=== PATIENT | female | born 1940 | race Caucasian/White ===

== ENCOUNTER 2023-10-10 09:22 | Emergency (ER) | payer MEDICARE, SELFPAY ==
[2023-10-10 09:25] VITALS: BP 159/70
[2023-10-10 09:49] LABS: % Basophils 0.8 % (0-2); % Eosinophils 1.7 % (0-6); % Immature Granulocytes 0.3 % (0-0.5); % Lymphocytes 14.5 % (20.5-51.1); % Monocytes 9.4 % (1.7-9.3); % Neutrophils 73.3 % (42.2-75.2); Absolute Basophils 0.1 10^3/uL (0-0.2); Absolute Eosinophils 0.1 10^3/uL (0-0.7); Absolute Lymphocytes 0.9 10^3/uL (1.2-3.4); Absolute Monocytes 0.6 10^3/uL (0.1-0.6); Absolute Neutrophils 4.8 10^3/uL (1.4-6.5); Hematocrit 31.8 % (37.0-47.0); Hemoglobin 11.2 g/dL (12.0-16.0); Mean Corp Hgb Conc. 35.2 g/dL (33.0-37.0); Mean Corpuscular Hgb 35.6 pg (27.0-31.0); Mean Platelet Volume 11.6 fL (7.4-10.4); Nucleated Red Blood Cells % 0 %; Platelet Count 200 10^3/uL (130-400); Red Blood Cell Count 3.15 10^6/uL (4.20-5.40); Red Cell Dist. Width 12.5 % (11.5-14.5); White Blood Cell Count 6.5 10^3/uL (4.8-10.8)
[2023-10-10 10:01] LABS: ALT (SGPT) 21 U/L (0-35); AST (SGOT) 36 U/L (14-36); Albumin 4.2 g/dl (3.5-5.0); Alkaline Phosphatase 58 U/L (38-126); Blood Urea Nitrogen 47 mg/dl (7-17); Calcium 9.6 mg/dl (8.4-10.2); Carbon Dioxide 29 mmol/L (22-30); Chloride 105 mmol/L (98-107); Glucose 115 mg/dl (70-99); Potassium 4.5 mmol/L (3.5-5.1); Sodium 139 mmol/L (135-145); Total Bilirubin 0.8 mg/dl (0.2-1.3); Total Protein 6.9 g/dl (6.3-8.2); eGFR 49.86
[2023-10-10 10:28] LABS: Troponin I < 0.012 ng/ml
[2023-10-10 10:59] VITALS: BMI 28.0
[2023-10-10 11:03] VITALS: BP 161/71
--- NOTE | 2023-10-10 12:19 | ED.GENMED ---
History of Present Illness
<Eagle León PA-C - Last Filed: 10/10/23 14:11>
General
Chief Complaint: Blood Pressure Problem
Source: patient
Exam Limitations: none
Time Seen by Provider: 10/10/23 11:45
Travel History
Have you had any contact with someone who has COVID-19?: No
Do you have any symptoms of coronavirus? Fever > 100 degrees, chills, cough, shortness of breath, sore throat, loss of taste or smell, muscle aches, or headache?: No
History of Present Illness
History of Present Illness:
82-year-old female with history of hypertension presents complaining of generalized sensation of something not feeling right. She notes intermittent numbness to both hands and feet. She also notes her blood pressure was elevated. No headache
chest pain shortness of breath. No cough fever. No dizziness no unilateral weakness or numbness. No abdominal pain nausea vomiting. No urinary symptoms. She is on metoprolol, olmesartan, hydralazine for blood pressure. She also takes
furosemide. She denies any leg swelling or shortness of breath. No other complaints. She is accompanied by her [id number]'s friend as her family is currently out of town.
Past History
<Ealge León PA-C - Last Filed: 10/10/23 14:11>
Past History
ED Past Medical History: HTN, Other (Diverticulitis) and Other (Melanoma)
ED Past Surgical History: Cholecystectomy, Orthopedic (Right total knee replacement, L4-L5 disc fusion) and Other (Mohs surgery on chest)
Social History
Tobacco: Non-smoker
Alcohol: None
Drug: None
Phy Exam
<Eagle León PA-C - Last Filed: 10/10/23 14:11>
Physical Exam
Physical Exam:
General : WEll appearing female, NAD
HEENT: NC/AT
Heart: RRR, no murmurs
Lungs; CTA bilaterally
Neuro: No drift, finger to nose and heel to tyler intact, no slurred speech or aphasia
SKin: Warm, no rashes
MSK: no spine tenderness or deformities
ext: no cyanosis or edema
Course
<Eagle León PA-C - Last Filed: 10/10/23 14:11>
Orders/Labs/Results
Orders:
Orders
10/10/23 09:27
Electrocardiogram (*1) Urgent
Reason for Study: Chest Pain
EKG- Treatment ONCE
10/10/23 09:42
Complete Blood Count/With Diff Urgent
Comprehensive Metabolic Panel Urgent
Troponin I Urgent
10/10/23 13:12
Urinalysis Reflex To Culture Urgent
Date Specimen was Collected: 10/10/23
Time Specimen was Collected: 13:07
Urine Microscopic Reflex Cult Urgent
Abnormal Lab Results
10/10/23 10/10/23
09:42 13:12
RBC 3.15 L 10^6/uL
(4.20-5.40)
Hgb 11.2 L g/dL
(12.0-16.0)
Hct 31.8 L %
(37.0-47.0)
MCV 101.0 H fL
(81.0-99.0)
MCH 35.6 H pg
(27.0-31.0)
MPV 11.6 H fL
(7.4-10.4)
Absolute Lymphs (auto) 0.9 L 10^3/uL
(1.2-3.4)
Lymphocytes % 14.5 L %
(20.5-51.1)
Monocytes % 9.4 H %
(1.7-9.3)
BUN 47 H mg/dl
(7-17)
Creatinine 1.1 H mg/dL
(0.6-1.0)
Glucose 115 H mg/dl
(70-99)
Urine Ketones Trace A
(Negative)
Leukocyte Esterase Rfl Trace A
(Negative)
Urine Bacteria (Reflex) Few A
(Negative)
10/10/23 09:42
10/10/23 09:42
Vital Signs
Initial and Last Documented VS:
Initial Vital Signs
Temp Pulse Resp BP Pulse Ox
98.1 F 72 18 159/70 98
10/10/23 09:25 10/10/23 09:25 10/10/23 09:25 10/10/23 09:25 10/10/23 09:25
Last Documented Vital Signs
Temp Pulse Resp BP Pulse Ox
98.1 F 73 10 161/71 99
10/10/23 09:25 10/10/23 13:15 10/10/23 13:15 10/10/23 11:03 10/10/23 12:00
<Trey Olivo, DO - Last Filed: 10/10/23 13:00>
Orders/Labs/Results
Orders:
Orders
10/10/23 09:27
Electrocardiogram (*1) Urgent
Reason for Study: Chest Pain
EKG- Treatment ONCE
10/10/23 09:42
Complete Blood Count/With Diff Urgent
Comprehensive Metabolic Panel Urgent
Troponin I Urgent
10/10/23 13:12
Urinalysis Reflex To Culture Urgent
Date Specimen was Collected: 10/10/23
Time Specimen was Collected: 13:07
Urine Microscopic Reflex Cult Urgent
Abnormal Lab Results
10/10/23 10/10/23
09:42 13:12
RBC 3.15 L 10^6/uL
(4.20-5.40)
Hgb 11.2 L g/dL
(12.0-16.0)
Hct 31.8 L %
(37.0-47.0)
MCV 101.0 H fL
(81.0-99.0)
MCH 35.6 H pg
(27.0-31.0)
MPV 11.6 H fL
(7.4-10.4)
Absolute Lymphs (auto) 0.9 L 10^3/uL
(1.2-3.4)
Lymphocytes % 14.5 L %
(20.5-51.1)
Monocytes % 9.4 H %
(1.7-9.3)
BUN 47 H mg/dl
(7-17)
Creatinine 1.1 H mg/dL
(0.6-1.0)
Glucose 115 H mg/dl
(70-99)
Urine Ketones Trace A
(Negative)
Leukocyte Esterase Rfl Trace A
(Negative)
Urine Bacteria (Reflex) Few A
(Negative)
10/10/23 09:42
10/10/23 09:42
Vital Signs
Initial and Last Documented VS:
Initial Vital Signs
Temp Pulse Resp BP Pulse Ox
98.1 F 72 18 159/70 98
10/10/23 09:25 10/10/23 09:25 10/10/23 09:25 10/10/23 09:25 10/10/23 09:25
Last Documented Vital Signs
Temp Pulse Resp BP Pulse Ox
98.1 F 73 10 161/71 99
10/10/23 09:25 10/10/23 13:15 10/10/23 13:15 10/10/23 11:03 10/10/23 12:00
Hectorlt;Eagle León PA-C - Last Filed: 10/10/23 14:11>
*Critical Care Note
Total Time (30-74mins, 75-104mins- exclusive of procedures): Not Applicable
<Eagle León PA-C - Last Filed: 10/10/23 14:11>
Update Note
Update Note:
Workup here essentially within normal limits. No sign of a stroke. Discussed with emergency room attending saw the patient as well. Urinalysis ordered and is negative. Blood pressures are reasonable here. No indication to order or change blood
pressure medicine regimen
ED Attending Note
<Eagle León PA-C - Last Filed: 10/10/23 14:11>
-
Portions of this chart may have been created with voice recognition software.� Occasional wrong word or��sound alike� substitutions may have occurred due to the inherent limitations of voice recognition software.
<Trey Olivo, - Last Filed: 10/10/23 13:00>
ED Attending Note
Patient seen and examined by attending physician: Yes
ED Attending Note:
I have reviewed and agree with history and treatment plan by Jaime León. My exam
Physical Exam
General: no apparent distress, not acutely ill
Neck: supple. no meningeal signs. normal posterior pharynx
Heart: s1/s2 regular rate and rhythm, no murmur. equal radial
pulses.
HEENT: Pupils equal round reactive to light, EOMI
Lungs: no acute respiratory distress. clear bilaterally
Abdomen: normal bowel sounds. not tender. no CVAT
Neuro: alert and oriented. no focal neurological deficits cranial nerves II through XII intact
Skin: no rash
Psychiatric: well kept. interactive and cooperative
Extremities: no edema. no calf tenderness. negative homans. good distal pulses
Patient here for blood pressure elevation. No weakness. Do not suspect CVA. Will check urinalysis, if negative will discharge patient to follow-up with primary care.
Discharge Plan
Departure
Patient Disposition: Home (Routine Discharge)
Date of Disposition: 10/10/23
Time of Disposition: 14:08
Patient with high blood pressure during this ER visit?: No
Discharge Problem:
Generalized weakness
Referrals:
Andreina Mar DO [Family Provider] -
Activity Restrictions/Additional Instructions:
Please continue current medication regimen. Please follow-up with your family doctor for further evaluation
Interventions
Interventions:
*Risk Screen - Suicide Last Done: 10/10/23 10:59
*General Assessment Last Done: 10/10/23 10:59
*Neglect/Abuse Screening Last Done: 10/10/23 10:59
ED- Fall Risk Assessment Last Done: 10/10/23 10:59
*ED COVID-19 Vaccine History Last Done: 10/10/23 10:59
ED- Cardiac Assessment Last Done: 10/10/23 10:59
ED- Neurological Assessment Last Done: 10/10/23 10:59
ED- Pulmonary Assessment Last Done: 10/10/23 10:59
[2023-10-10 13:18] LABS: Urine Albumin Negative (Neg - Trace); Urine Bilirubin Negative (Negative); Urine Character Clear (Clear); Urine Color Yellow; Urine Glucose Negative (Negative); Urine Ketone Trace (Negative); Urine Leukocyte Trace (Negative); Urine Nitrite Negative (Negative); Urine Occult Blood Negative (Negative); Urine Urobilinogen Negative (Neg - 1+); Urine pH 6.5 (5.0-9.0)
[2023-10-10 13:28] LABS: Urine Hyaline Cast 0-2 /LPF (0-2); Urine Mucus Few
[2023-10-10 13:29] LABS: Urine Urothelial Cell >30 /LPF (FEW)
[2023-10-10 13:30] LABS: Urine Bacteria Few (Negative); Urine Red Blood Cell 0-2 /HPF (0-2); Urine White Cell 0-2 /HPF (0-5)
[2023-10-10 14:00] VITALS: BP 150/79
== END 2023-10-10 14:19 | disposition home or self-care (01) ==
LOC: EMR 09:22
PROVIDERS: EMERGENCY PHYSICIAN Emergency Medicine; FAMILY PHYSICIAN Family Medicine
DX: R53.1 Weakness (principal); R20.0 Anesthesia of skin; I10 Essential (primary) hypertension; K57.92 Diverticulitis of intestine, part unspecified, without perforation or abscess without bleeding; Z79.899 Other long term (current) drug therapy; Z96.651 Presence of right artificial knee joint; Z85.820 Personal history of malignant melanoma of skin; Z90.49 Acquired absence of other specified parts of digestive tract; Z98.1 Arthrodesis status; Z88.8 Allergy status to other drugs, medicaments and biological substances; Z91.041 Radiographic dye allergy status
CPT/HCPCS: 99284; 80053; 81003; 81015; 84484; 85025; 93005

== ENCOUNTER → 2023-11-11 08:05 | Outpatient (REF) | payer MEDICARE, SELFPAY | LOC: DHCBC/DCA 08:05 | PROVIDERS: ATTENDING PHYSICIAN Internal Medicine Cardiovascular Disease; FAMILY PHYSICIAN Family Medicine | DX: I10 Essential (primary) hypertension (principal); E78.5 Hyperlipidemia, unspecified; R79.89 Other specified abnormal findings of blood chemistry; R73.03 Prediabetes | CPT/HCPCS: 78452; 93017; A9500; J2785 ==

== ENCOUNTER → 2023-11-18 10:25 | Outpatient (REF) | payer MEDICARE, SELFPAY | LOC: RAD 10:25 | PROVIDERS: ATTENDING PHYSICIAN Family Medicine | DX: N28.1 Cyst of kidney, acquired (principal) | CPT/HCPCS: 76775 ==

== ENCOUNTER → 2024-03-23 10:23 | Outpatient (REF) | payer MEDICARE, SELFPAY | LOC: HWWDC 10:23 | PROVIDERS: ATTENDING PHYSICIAN Family Medicine | DX: Z12.31 Encounter for screening mammogram for malignant neoplasm of breast (principal); Z98.890 Other specified postprocedural states | CPT/HCPCS: 77063; 77067 ==

== ENCOUNTER 2025-06-24 21:45 | Observation (INO) | payer MEDICARE, SELFPAY ==
[2025-06-24] VITALS (7 sets, daily range): BP systolic 132–160; BP diastolic 56–63; BMI 21.8; BMI 21.9
[2025-06-24 16:45] LABS: Hematocrit 29.9 % (37.0-47.0); Hemoglobin 10.1 g/dL (12.0-16.0); Mean Corp Hgb Conc. 33.8 g/dL (33.0-37.0); Mean Corpuscular Volume 103.5 fL (81.0-99.0); Nucleated Red Blood Cells % 0 %; Platelet Count 244 10^3/uL (130-400); Red Cell Dist. Width 13.3 % (11.5-14.5); Urine Character Clear (Clear)
[2025-06-24 16:54] LABS: Urine Red Blood Cell 0-2 /HPF (0-2)
[2025-06-24 17:09] LABS: ALT (SGPT) 17 U/L (0-35); AST (SGOT) 28 U/L (14-36); Albumin 4.5 g/dl (3.5-5.0); Alkaline Phosphatase 61 U/L (38-126); Blood Urea Nitrogen 48 mg/dl (7-17); Calcium 9.3 mg/dl (8.4-10.2); Carbon Dioxide 27 mmol/L (22-30); Chloride 107 mmol/L (98-107); Glucose 141 mg/dl (70-99); Potassium 4.8 mmol/L (3.5-5.1); Sodium 143 mmol/L (135-145); Total Protein 7.3 g/dl (6.3-8.2); eGFR 33.94
[2025-06-24] MEDS: NSS 500 IV ×2 (18:21→21:52)
--- NOTE | 2025-06-24 18:31 | ED.GENMED ---
History of Present Illness
General
Chief Complaint: Change in Mental Status
Source: patient and family (Daughter and son-in-law at bedside)
Exam Limitations: altered mental status
Time Seen by Provider: 06/24/25 17:41
Nursing documentation reviewed up to this point in time: agreed with
History of Present Illness
History of Present Illness:
Patient is an 84-year-old female with history of hypertension who presents to the emergency department with daughter for evaluation of change in mental status. Patient's daughter states that her mom lives alone in an apartment and about 3 weeks ago
started with multiple episodes of confusion. On 1 occasion, apparently patient called her daughter stating if there were dogs and children running around her apartment. This morning, patient reportedly went down into the parking lot and was
'knocking' on another resident's truck as she thought her was trapped inside. Patient's daughter states that her 5 years ago. Apparently there has been other additional episodes of transient confusion however
she seems to revert back to her baseline in between these episodes.
Her daughter is concerned that her mom might have a UTI as she has displayed confusion in the past with such. Her mom also admits to not eating/drinking much over the past few days.
Patient has no current complaints. She denies headache, neck pain. She denies back pain. No numbness/tingling or weakness in extremities. She denies any abdominal pain or episodes of vomiting.
Patient did fall a few weeks ago however the circumstances are uncertain. She is not on any oral anticoagulation. No new medications.
Past History
Past History
ED Past Medical History: HTN, Other (Diverticulitis) and Other (Melanoma)
ED Past Surgical History: Cholecystectomy, Orthopedic (Right total knee replacement, L4-L5 disc fusion) and Other (Mohs surgery on chest)
Social History
Tobacco: Non-smoker
Alcohol: None
Drug: None
Review of Systems
Review of Systems
Allergies reviewed?: Yes
All Other Systems: ROS reviewed and negative except as documented in HPI and ROS
Phy Exam
Physical Exam
Physical Exam:
Vitals: Mildly hypertensive, otherwise vital signs stable. Afebrile
General: Patient is well appearing, no acute distress. Nontoxic appearing
Skin: Warm and dry, no rashes or lesions
Head: Normocephalic, atraumatic
Eyes: Sclera nonicteric. EOMs intact. No nystagmus.
Throat: Protecting airway
Neck: Normal ROM, no cervical spine tenderness, no meningismus
Cardiac: Regular rate and rhythm, no murmurs.
Pulm: Normal respiratory effort, no wheezes, rales, rhonchi heard on exam
.
Abdomen: No abdominal tenderness.
Extremities: Bilateral lower extremity edema, right > left. No bony tenderness of bilateral lower extremities. Distal pulses intact.
Neuro: AAOx3 on initial assessment, however appears intermittently confused. No facial droop or asymmetry. Clear speech. Moving all extremities. Strength 5/5 in bilateral upper and lower extremities.
Psychiatric: Normal affect.
Course
Orders/Labs/Results
Orders:
Orders
06/24/25 Dinner
Regular
At Your Request: Limited Participation
06/24/25 16:31
Complete Blood Count/With Diff Urgent
Comprehensive Metabolic Panel Urgent
Folate Urgent
Comment: ADD ON
Free T4 Urgent
TSH Reflex To Free T4 Urgent
Comment: ADD ON
Urinalysis Reflex To Culture Urgent
Date Specimen was Collected: 06/24/25
Time Specimen was Collected: 16:13
Urine Microscopic Reflex Cult Urgent
Vitamin B12 Urgent
Comment: ADD ON
Urine Culture Urgent
DAVID Source: U
Specimen Description:
Obtained by: Random
Date Specimen was Collected: 06/24/25
Time Specimen was Collected: 16:13
06/24/25 17:59
Electrocardiogram (*1) Urgent
Reason for Study: Fatigue / Weakness
CT Head W/o Iv Contrast Urgent
Comment:
Reason For Exam: AMS
EKG- Treatment ONCE
0.9% Sodium Chloride 500 ml [Nss] 500 ml IV BOLUS
06/24/25 18:00
US Periph Venous LOWER Ext RT Urgent
Comment:
Reason For Exam: RLE swelling
06/24/25 21:23
Add On- LAB Urgent
Tests Added?: b12 folate, tsh with free t4 reflex
Admit/Transfer Patient As Directed
Co-Sign Provider:
Level of Care: Observation services
Assign to:: Telemetry
Physician / Group: catina wood
Diagnosis: transient confusion/hallucinations/RLE cellulitis/fall
Reason for Telemetry: CVA/TIA
Date to Stop Telemetry: 06/27/25
Time to Stop Telemetry: 11:00
Reason for Hospitalization: transient confusion/hallucinations/RLE cellulitis/fall
Expected length of stay greater than two midnights?: Yes
Code Status As Directed
Resuscitation Status: Do not resuscitate
Reached after discussion with pt or family/Healthcare POA: Yes
Based on pt advanced directive or healthcare POA form: Yes
Decision communicated with: per pt with daughter amairani present at bedside
06/24/25 21:24
DNR Bracelet Application ONCE
06/24/25 21:30
PRN Pain Medication Management As Directed
May give lesser potent ordered pain med per pt: Yes
preference::
Protocol:: Medication orders for pain may be administered in a
manner that supports deferring to patient preference
when the pt is:
- Requesting an ordered lesser potent pain medication.
Least to most potent pain medications are defined
as: acetaminophen < NSAID < tramadol < opioids
(morphine, oxycodone, hydromorphone).
- Requesting a lesser dose of the same medication IF
ORDERED.
- Requesting a less intrusive route of administration
if both routes are prescribed by the provider (PO <
IV).
06/24/25 21:34
CefTRIAXone [Rocephin] 1,000 mg IV NOW STA
06/24/25 21:38
PRN Pain Medication Management As Directed
May give lesser potent ordered pain med per pt: Yes
preference::
Protocol:: Medication orders for pain may be administered in a
manner that supports deferring to patient preference
when the pt is:
- Requesting an ordered lesser potent pain medication.
Least to most potent pain medications are defined
as: acetaminophen < NSAID < tramadol < opioids
(morphine, oxycodone, hydromorphone).
- Requesting a lesser dose of the same medication IF
ORDERED.
- Requesting a less intrusive route of administration
if both routes are prescribed by the provider (PO <
IV).
06/24/25 22:00
0.9% Sodium Chloride 500 ml [Nss] 500 ml IV 50 mls/hr
06/24/25 22:29
Acetaminophen [Tylenol] 650 mg PO Q4HPRN PRN
06/24/25 22:29
Activity As Directed
Activity Level: With Assistance
Precautions As Directed
Type of Precautions: Other
Comment: fall
Vital Signs As Directed
Frequency: Per unit guidelines
Pt Eval And Treat Routine
Activity Level: With Assistance
DX Deep Vein Thrombosis Video Routine
06/25/25 06:00
MRI Brain [MR Brain Without Contrast] IN AM
Comment:
Reason For Exam: confusion
OK for patient to be off Cardiac Monitoring for MRI: Yes
Recent pill cam endoscopy?: No
Pacemaker/Defibrillator?: No
Carotid US [US Cerebrovascular] IN AM
Comment:
Reason For Exam: bilat carotid bruits
06/25/25 06:54
Cardiovascular Evaluation IN AM
Complete Blood Count/With Diff IN AM
Comprehensive Metabolic Panel IN AM
Hgba1c [Glycohemoglobin (HgbA1c)] IN AM
06/25/25 08:00
Heparin 5,000 units SC Q12
HydrALAZINE [Apresoline] 50 mg PO BID
Losartan [Cozaar] 50 mg PO DAILY
Magnesium Oxide 400 mg PO DAILY
Multivitamin [Theragran] 1 tablet PO DAILY
Pantoprazole [Protonix] 40 mg PO DAILY
06/25/25 10:00
Cyanocobalamin [Vitamin B-12] 1,000 mcg PO Q48H
06/25/25 18:00
Atorvastatin [Lipitor] 10 mg PO QPM
Calcium Carbonate [Oscal Jone 500] 500 mg PO QPM
Metoprolol Xl [Toprol Xl] 25 mg PO QPM
06/25/25 22:00
CefTRIAXone [Rocephin] 1,000 mg IV Q24H
06/26/25 06:00
Complete Blood Count/With Diff IN AM
Comprehensive Metabolic Panel IN AM
06/27/25 06:00
Complete Blood Count/With Diff IN AM
Comprehensive Metabolic Panel IN AM
06/27/25 11:00
DC Protocol for Telemetry ONCE
Abnormal Lab Results
06/24/25
16:31
RBC 2.89 L 10^6/uL
(4.20-5.40)
Hgb 10.1 L g/dL
(12.0-16.0)
Hct 29.9 L %
(37.0-47.0)
MCV 103.5 H fL
(81.0-99.0)
MCH 34.9 H pg
(27.0-31.0)
MPV 11.7 H fL
(7.4-10.4)
Absolute Monos (auto) 0.7 H 10^3/uL
(0.1-0.6)
Lymphocytes % 15.5 L %
(20.5-51.1)
Monocytes % 9.7 H %
(1.7-9.3)
BUN 48 H mg/dl
(7-17)
Creatinine 1.5 H mg/dL
(0.6-1.0)
Glucose 141 H mg/dl
(70-99)
Vitamin B12 > 1000 H pg/ml
(239-931)
Folate > 20.0 H ng/ml
(2.76-20)
TSH (Reflex) 6.38 H uIU/ml
(0.47-4.68)
Leukocyte Esterase Rfl 1+ A
(Negative)
Urine Bacteria (Reflex) Many A
(Negative)
Urine Albumin (Reflex) 2+ A
(Neg - Trace)
06/24/25 16:31
06/24/25 16:31
Vital Signs
Initial and Last Documented VS:
Initial Vital Signs
Temp Pulse Resp BP Pulse Ox
98.8 F 72 16 155/57 98
06/24/25 16:07 06/24/25 16:07 06/24/25 16:07 06/24/25 16:07 06/24/25 16:07
Last Documented Vital Signs
Temp Pulse Resp BP Pulse Ox
98.6 F 78 14 104/40 97
06/25/25 11:38 06/25/25 11:38 06/25/25 11:38 06/25/25 11:38 06/25/25 11:38
MDM/Problems Addressed
Differential Diagnosis Includes:
Not limited to: Acute dehydration, UTI, intracranial mass, intracranial hemorrhage, TIA, etc.
MDM/Problems Addressed:
84-year-old female with intermittent change in mental status over the past three weeks. She has suffered a recent fall however circumstances unclear. No infectious symptoms. Vitals stable. On initial evaluation patient appears well and in no
distress. She is alert & oriented without any focal neurologic deficits. Strength equal. Cardio/pulmonary assessment unremarkable. Abdomen benign.
Basic labs were sent prior to my evaluation significant for mild KATIE likely secondary to poor PO intake. Urine with a few bacteria, however no convincing evidence of UTI.
Differential includes infectious process, dehydration, central process including TIA/CVA, versus new onset dementia.
Will give IV fluids, obtain CT scan head, and ultrasound of right lower extremity.
Update: CT head without acute findings. Ultrasound evidence of DVT.
On reevaluation, patient was not aware that she was in the hospital. She otherwise remains neurologically intact without any focal deficits.
Given acute changes in mental status will admit patient for further evaluation/management. She likely will need MRI. Will hold antibiotics without convincing evidence of infection. Patient accepted to hospitalist service in stable condition for
further care.
Chronic conditions affecting care:
Hypertension
Acute Exacerbation and/or Progression of Chronic Illness:
Acutely hypertensive
*Radiology
Radiology exam reviewed: radiology read reviewed
*Pulse Oximetry
SaO2: 99
Oxygen Mode of Delivery: Room air
Patient hypoxic: no
*EKG
Interpreted by ED Provider?: Yes
EKG Intrepretation Date: 06/24/25
Interpretation: abnormal
Comparison EKG: no changes
Heart Rate: 76
Rate: normal
Rhythm: sinus
[place]: normal axis
Interval: normal QT interval
QRS Pattern: normal QRS
Ischemia: no ischemia
*Assistant Manager Bilingual Interpretation
Rate: normal
Interpretation: normal
Heart Rate: 76
Rhythm: sinus
*Critical Care Note
Total Time (30-74mins, 75-104mins- exclusive of procedures): Not Applicable
Patient Management
Discussion with other providers: Hospitalist
ED Attending Note
-
Portions of this chart may have been created with voice recognition software.� Occasional wrong word or��sound alike� substitutions may have occurred due to the inherent limitations of voice recognition software.
Discharge Plan
Departure
Patient Disposition: Admit
Date of Disposition: 06/24/25
Time of Disposition: 20:36
Presentation/result/management discussed w/ accepting MD/DO: Hospitalist
Discharge Problem:
Altered mental status, Renal insufficiency
Interventions
Interventions:
*Risk Screen - Suicide Last Done: 06/24/25 22:42
*General Assessment Last Done: 06/24/25 18:05
*Neglect/Abuse Screening Last Done: 06/24/25 18:06
*ED- Fall Risk Assessment Last Done: 06/24/25 22:04
*ED COVID-19 Vaccine History Last Done: 06/24/25 18:03
*ED Influenza Vaccine History Last Done: 06/24/25 18:03
*Nursing Disposition Last Done: 06/24/25 22:25
ED- Pulmonary Assessment Last Done: 06/24/25 19:53
ED-Psychological Assessment Last Done: 06/24/25 18:10
ED- Neurological Assessment Last Done: 06/24/25 19:53
ED- Cardiac Assessment Last Done: 06/24/25 22:00
Discharge Date and Time
Discharge Date/Time: 06/24/25 22:25
--- NOTE | 2025-06-24 19:33 | EDRN ---
Pt says she is here because she fell and to make sure her head is ok 'that I'm normal.' Daughter adds pt fell at least 1 week ago. Pt hurt her R leg in the fall. Pt unsure why she fell, thinks it might have been a slippery mat on the floor. No
loc. Pt uses rollator and walker. Pt lives in an apt by herself. Pt denies pain at this time. Pt says she gets confused at times. 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 Pt called her looking for a small child and dog in
her apartment. Today, pt called her daughter and told her she had gone down to the parking lot and thought she saw her (who years ago) and that she was banging on a window thinking a woman needed help so she was going to go upstairs
and call for help. Daughter went to pt's apt and says pt was waiting for her to take her home, didn't realize she was in her own apt. Concern pt had not been eating and drinking.
--- NOTE | 2025-06-24 20:45 | W.PN.UPDATE ---
Update Note
Progress Note Update
Patient seen in conjunction with nurse practitioner. I agree with the findings on history and physical. I concur with assessment and plan unless stated otherwise.
This is a 84-year-old with past medical history significant for hypertension, prior hx of melanoma, hyperlipidemia, GERD, elevated TSH but normal T4 presenting to the emergency department for concern for worsening mental status over the last 3
weeks. Patient's daughter reported that she started having episodes of confusion about 1 week ago, she seems to be having hallucinations seeing children and dogs running around her apartment. She was and knocking on another resident stroke she
thought that this is was trapped inside. 5 years ago. In between these episodes she appears to be at baseline.
They have no new medication changes. She had a fall 1wk ago. She denies any other symptoms such as urinary frequency or urgency incontinence of foul-smelling urine. She denies any flank pain. She denies any diarrhea nausea or vomiting. She
stated that her appetite has decreased and she has not been eating or drinking much in the last few days. No known significant weight loss. No night sweats. She has had no fevers or chills. She denies any respiratory symptoms.
Independent department patient was afebrile, blood pressure was 151/60 with a pulse rate of 71 and satting 98% on room air. CT of the head shows no acute findings. ECG with normal sinus rhythm at a rate of [address] or T wave changes.
CBC shows chronic microcytic anemia with a hemoglobin of 10.1 platelet of 244. Electrolytes were all within normal range. LFTs were normal.. Creatinine 1 remains elevated with a creatinine of 1.54 from a baseline from 1.1 to 1 mg years ago. UA
is equivocal with 1+positive leukocyte esterase and bacteria but no significant WBCs or nitrites. She had ultrasound of her R lower extremities due to edema and was found to have no evidence of DVT. Prior carotid u/s 2021: Minimal mixed plaque
right carotid bulb, minimal soft plaque left common carotid artery, mild calcified plaque left carotid bulb. However no hemodynamically significant stenoses greater than 50% noted bilateral carotid arteries. Antegrade flow bilateral vertebral
arteries.
Assessment and plan
84-year-old with acute/new onset of forgetfulness confusion associated with hallucinations with intermittent episodes of lucency but mostly present in between these episodes. She has no focal neurological deficits. Hallucinations more severe 1 wk
ago after a fall and she has been having RLE swelling and mild redness c/w cellulitis. She has no respiratory or cardiac changes. She has no medication changes. Suspected onset of dementia possibly secondary to subacute stroke vs degenerative
process but cannot rule out acute cause. Possibly mild dehydration with KATIE.
Altered mental status - Encephalopathy vs subacute stroke or onset of dementia
- admit to med/surg observation
- check tsh, b12, rpr
- u/a not entirely convincing but possibly asymptomatic uti. Urine cultures pending
- check lipid panel and a1c
- mri in am to eval for subacute stroke
- continue b12 supplementation
- treat mild cellulitis of the RLE
- if negative w/u above consider therapy to retard progression
- pt consult
- case management
KATIE - mild KATIE. Patient on ARB and diureteics for HTN. Recent edema with 2+ urinary protein. No prior proteinuric renal disease
- hold lasix
- continue olmesartan for now
- check orthostatic vs
- gentle hydration with 500ml ns additionally
RLE swelling - Possibly from recent fall/contusion but degree of swelling and skin induration suggests a mild cellulitis
- will treat with ceftriaxone for now to possibly cover asymptomatic uti, narrow to keflex if urine culture negative
HTN
- continue metoprolol, hydralazine and olmesartan for now
- orthostaic vs as above
DVT PPX - heparin s/q
Code status - DNR/DNI
--- NOTE | 2025-06-24 20:49 | HPS.HSE ---
Family Physician
-
Family Physician: AMY Frank
Chief Complaint
-
Episodic confusion
History of Present Illness
84-year-old female from home where she lives alone however presents to the ER with her daughter who states she has noticed multiple episodes of confusion over the past 3 weeks. On 1 occasion calling her daughter and asking where the child, other
incidents calling asking to be picked up thinking that she wanted to go to her house in [place] where she has never lived there incidents she was calling asking why her had not picked her up but is . Last night she
recalls seeing her in the apartment and him calling her name Maria E. This morning she went down to the parking lot was knocking on another residents truck thinking her was and trapped inside. Her has 5
years ago. She does report she think she fell about 1-1/2 weeks ago injuring her right lower extremity which is swollen, erythematous and hot she has scabbed abrasions to right lower extremity with yellowing ecchymosis to the lateral aspect of the
ankle, scabbed abrasion to left lower anterior tyler, right deltoid. The patient reports she has not eaten or drank much over the past few days. She denies headache, sore throat, fever, chills, chest pain, palpitations, cough, shortness of breath,
abdominal pain, nausea, vomiting, diarrhea. She has past medical history of hypertension, HLD, chronic anemia�macrocytic, diverticulitis, melanoma.
Medical History
Past Medical History
Past Medical History: Reports Other
Additional Past Medical History:
Hypertension
HLD
Chronic anemia�macrocytic
Diverticulitis
Melanoma.
Chronic ambulatory dysfunction uses rollator at baseline
Past Surgical History: Reports Other
Additional Past Surgical History:
Mohs procedure chest due to melanoma
Right total knee replacement
Left breast lumpectomy
Spinal fusion L4-L5 due to herniated disc
Cholecystectomy
Social History
Tobacco: Former Smoker (Quit age 25)
Alcohol: None
Personal: (since 2019)
Living: Alone (lives in apartment )
Employment: Retired
Family History
Family History: Not pertinent
Allergies / Home Medications
Allergies reflects when Allergies were last updated in [facility].
Home Medications with original date entered in [facility]
Allergy/Medication List:
Allergies
Allergy/AdvReac Type Severity Reaction Status Date / Time
diatrizoate sodium (From Allergy Hives Verified 06/24/25 16:13
Hypaque)
epinephrine AdvReac Unknown Verified 06/24/25 16:13
iv dye Allergy Hives Uncoded 06/24/25 16:13
Home Medications
calcium carbonate (Calcium 600) 600 mg PO QPM 06/24/25
cyanocobalamin (vitamin B-12) 1,000 mcg tablet 1,000 mcg PO Q48H 06/24/25
furosemide 20 mg tablet 20 mg PO DAILY 06/24/25
hydralazine 50 mg tablet 50 mg PO BID 06/24/25
magnesium oxide 400 mg PO DAILY 06/24/25
metoprolol succinate 25 mg tablet,extended release 24 hr 25 mg PO QPM 06/24/25
uryvlvztunlk-ckktqyqb-mjidii tablet 1 tab PO DAILY 06/24/25
olmesartan 20 mg tablet 20 mg PO DAILY 06/24/25
omeprazole 20 mg tablet,delayed release 20 mg PO DAILY 06/24/25
simvastatin 10 mg tablet 10 mg PO QPM 06/24/25
Review of Systems
-
History Source: Patient and Family (ashleymarshall amairani )
A 12 point ROS was completed and negative except as noted: Yes
Constitutional: Denies Fever or Chills
EENT: Reports Other (intermittent confusion with auditory and visual hallucinations seeing and hearing her ); Denies Sore Throat or Runny Nose
Respiratory: Denies Cough or Trouble Breathing
Cardiac: Denies Chest Pain, Diaphoresis, Palpitations or Syncope
Abdomen/GI: Denies Abdominal Pain, Nausea, Vomiting, Diarrhea, Constipated or Bloody Stools
: Denies Dysuria, Frequency, Flank Pain, Incontinence, Difficulty Voiding or Urgency
Musculoskeletal: Reports Edema (+2 right lower extremity edema with circumferential erythema, ecchymosis yellowing around right lateral ankle, scabbed abrasion from recent fall, scabbed abrasion left anterior tyler, scabbed abrasion right deltoid);
Denies Joint Pain
Skin: Denies Itching or Rash
Neurological: Denies Dizzy, Headache or Weakness
Endocrine: Reports No Symptoms
Hematologic/Lymphatic: Reports No Symptoms
Psych: Reports Calm
Physical Exam
Vital Signs
Vital Signs
Temp Pulse Resp BP Pulse Ox
98.4 F 71 14 151/62 98
06/24/25 19:45 06/24/25 20:00 06/24/25 19:45 06/24/25 20:00 06/24/25 20:00
Physical Exam
General: Other (Oriented to name, place, year but not day of week is aware is having episodic episodes of confusion with visual and auditory hallucinations seeing and hearing her last night looking for him this morning outside); No
Pain, Fever or Chills
HEENT: NormoCephalic, Anicteric, Moist mucous membranes, PERRLA, Loda Conjunctivae, No Ptosis and Other (Bilateral carotid bruits right greater than left)
Respiratory: Clear; No Wheezes, Rales or Rhonchi
Cardiac: S1/S2, Regular Rhythm, Peripheral Edema (+2 right lower extremity) and Carotid Bruits (Bilateral right greater than left); No Murmur, Rub or Gallop
Breast: Deferred by me
GI: Soft, Non Tender, Non Distended, Normal Bowel Sounds and No Hepatosplenomegaly
Rectal: Deferred by Provider
Genito-urinary: Deferred by me
Musculoskeletal: No Clubbing, No Cyanosis and Edema, Right Lower Extremity (+2 right lower extremity edema with circumferential erythema, ecchymosis yellowing around right lateral ankle, scabbed abrasion from recent fall, scabbed abrasion left
anterior tyler, scabbed abrasion right deltoid); No Edema, Left Upper Extremity, Edema, Right Upper Extremity or Edema, Left Lower Extremity
Skin: Warm and Dry
Neuro: AO x 3 (To person, place, year, daughter but not day of week), No Motor Deficits, Nonfocal/grossly intact, Cranial Nerves Intact and No Sensory Deficits; No Slurred Speech, Facial Droop, Tremors or Sedated
Psych: Calm
Laboratory Results
-
06/24/25 16:31
06/24/25 16:31
Laboratory Results
Total Bilirubin 0.5 mg/dl (0.2-1.3) 06/24/25 16:31
AST 28 U/L (14-36) 06/24/25 16:31
ALT 17 U/L (0-35) 06/24/25 16:31
Alkaline Phosphatase 61 U/L (38-126) 06/24/25 16:31
Data Reviewed
-
CT Scan: Report Reviewed by me
Lab Data: Labs Reviewed by me
Impression/Plan
-
Impression/plan:
Observation telemetry
#Intermittent confusion/visual auditory hallucinations concerning for possible CVA/TIA versus dementia
Urinalysis negative, afebrile, BP 151/62
-MRI brain
-Check carotid ultrasound�bilateral carotid bruits present on exam
- Consult neurology if abnormal brain MRI
-Check lipid profile, HbA1c
- Check TSH with free T4 reflex, B12
PT/OT/case management consult patient lives alone
CT head: No acute intracranial abnormalities. Findings compatible with diffuse cortical atrophy with nonspecific white matter changes
EKG: NSR 76 bpm, QTc 432 MS no significant change from October 10, 2023
#Pyuria possible UTI given confusion
- Many bacteria, +1 leukocyte
- Will start IV Rocephin
#Recent fall with right lower extremity cellulitis/swelling
#Scabbed abrasions right deltoid, right lower extremity, left lower extremity
-Will start IV Rocephin given above UTI
Ultrasound negative for DVT
#KATIE on CKD 3B
Creat 1.5/bun 48 prior creat 1.1 10/10/2023
-Hold Lasix 20 mg daily
#Chronic anemia�macrocytic
Hgb 10 appears near baseline
-Continue B12 supplement 1000 mcg p.o. every 48 h
- Check B12 level
#HTN�benign
BP 151/62
-Continue metoprolol 25 mg every afternoon, olmesartan 20 mg daily, hydralazine 50 mg twice daily with hold parameters
#HLD
-Continue simvastatin 10 mg every afternoon
#GERD
-Continue omeprazole 20 mg daily, calcium carbonate
DVT prophylaxis
Subcu heparin
DNR per patient with daughter Amairani present at bedside
[2025-06-24] MEDS: ROCEPHIN 1000 MG IV (21:52)
--- NOTE | 2025-06-24 23:00 | PTCARENOTE ---
Received pt from ED via stretcher. Pt ambulated to bed x1 assist. Pt's VSS and AOx3. Pt oriented to room. Admission and initial assessment completed. Pt resting comfortably and call duncan within reach. All questions answered at this time.
[2025-06-24 23:16] LABS: Folate > 20.0 ng/ml (2.76-20); Vitamin B12 > 1000 pg/ml (239-931)
[2025-06-25] VITALS (7 sets, daily range): BP systolic 101–125; BP diastolic 40–52; PULSE 77; BMI 21.9
[2025-06-25 08:16] LABS: Hematocrit 24.3 % (37.0-47.0); Hemoglobin 7.8 g/dL (12.0-16.0); Mean Corp Hgb Conc. 32.1 g/dL (33.0-37.0); Mean Corpuscular Volume 106.1 fL (81.0-99.0); Nucleated Red Blood Cells % 0 %; Platelet Count 188 10^3/uL (130-400); Red Cell Dist. Width 13.9 % (11.5-14.5)
[2025-06-25 08:21] LABS: ALT (SGPT) 18 U/L (0-35); AST (SGOT) 22 U/L (14-36); Albumin 3.1 g/dl (3.5-5.0); Alkaline Phosphatase 44 U/L (38-126); Blood Urea Nitrogen 46 mg/dl (7-17); Calcium 8.4 mg/dl (8.4-10.2); Carbon Dioxide 26 mmol/L (22-30); Chloride 113 mmol/L (98-107); Estimated Creatinine Clearance 20 ml/min; Glucose 133 mg/dl (70-99); HDL Cholesterol 40 mg/dl; LDL Cholesterol, Calculated 73 mg/dl; Potassium 4.7 mmol/L (3.5-5.1); Sodium 140 mmol/L (135-145); Total Protein 5.5 g/dl (6.3-8.2); Very Low Density Lipoprotein 21 mg/dl (0-30); eGFR 31.41
[2025-06-25 08:57] LABS: Glycohemoglobin (HgbA1c) 6.0 % (4.0-5.9)
--- NOTE | 2025-06-25 08:58 | W.PN.HOSP.TC ---
Today's Communication/Plan
-
Continue empiric antibiotic
Hold losartan
Bladder scan and straight cath protocol
MRI brain pending
PT/OT evaluation
Assessment / Plan
Assessment / Plan
1. Acute toxic metabolic encephalopathy
-No clear reason for encephalopathy found on preliminary workup, question of possible undiagnosed mild cognitive impairment/mild dementia
-CT head showed some atrophy, no other acute findings
-MRI brain pending
-Urinalysis not suggestive of significant UTI, treating empirically 3 days of antibiotic for bacteriuria
-TSH 6.38 and FT4 1.48, no other signs suggestive of hypothyroidism
-Patient had minimal temperature of 100 Fahrenheit, check COVID
-B12/folate within normal limit
-Limit sedating medication
- Continue supportive care
2. Abnormal urinalysis
- Significant bacteriuria, not much pyuria
- Patient denies of having any dysuria/urinary urgency/incontinence
- Treat with 3 days of Rocephin therapy empirically
3. KATIE versus CKD stage IIIb
- Last known baseline creatinine of 1.1 in October 23
- On losartan/Lasix at home, hold
- Bladder scan and straight cath protocol ordered
4. Right lower extremity swelling
Recent mechanical fall
-Ultrasound negative for DVT
- Compression stockings
5. Chronic macrocytic anemia
- Hemoglobin has trended down to 7.8, no signs of ongoing blood loss
- This is likely dilutional component with patient getting 1 L of NS yesterday
- Continue monitoring for now
6. Essential hypertension
-Maintained on metoprolol and hydralazine
-Hold UZAIR in light of unclear renal function status
7. HLD
-Continue simvastatin 10 mg every afternoon
8. GERD
-Continue omeprazole 20 mg daily, calcium carbonate
DVT prophylaxis - Subcu heparin
DNR per patient with daughter Lianna present at bedside by admitting FLOOR TECH
Total time spent ; 53 mins
Anticipated Discharge: 24 - 48 hours
Subjective/Interval History
-
Date of Service: June 25, 2025
patient is pleasant disoriented in the morning
resting comfortably in bed
not voicing much complain
Objective Data
-
Labs:
Laboratory Results
06/25/25
06:54
WBC 11.2 H
Hgb 7.8 L D
Hct 24.3 L
Plt Count 188 D
Sodium 140
Potassium 4.7
Chloride 113 H
Carbon Dioxide 26
BUN 46 H
Creatinine 1.6 H
Glucose 133 H
Calcium 8.4
Total Bilirubin 0.3
AST 22
ALT 18
Alkaline Phosphatase 44
Vital Signs:
Vital Signs
Temp Pulse Resp BP Pulse Ox
100.0 F 78 14 110/49 95
06/25/25 07:31 06/25/25 07:31 06/25/25 07:31 06/25/25 07:31 06/25/25 07:31
I&O
06/24/25 06/25/25 06/26/25
06:59 06:59 06:59
Intake Total 400 / 400
Balance 400 / 400
Review of Systems
-
Respiratory: Reports No Symptoms
Cardiac: Reports No Symptoms
Abdomen/GI: Reports No Symptoms
Physical Exam
-
General: No Apparent Distress
HEENT: Negative Oxygen
Respiratory: Clear to Auscultation
Cardiac: Regular Rhythm and S1/S2; Negative Murmur
GI: Soft, Nontender and Nondistended
Neuro: Awake and Alert; Negative Oriented
[2025-06-25 09:53] LABS: COVID-19 Antigen Negative (Negative)
[2025-06-25] MEDS: PROTONIX 40 MG PO (09:55)
[2025-06-25] MEDS: HEPARIN 5000 UNITS SC ×2 (09:55→20:39)
[2025-06-25] MEDS: THERAGRAN 1 TABLET PO (09:55)
[2025-06-25] MEDS: MAGNESIUM OXIDE 400 MG PO (09:55)
[2025-06-25] MEDS: APRESOLINE 50 MG PO (09:58)
[2025-06-25] MEDS: VITAMIN B-12 1000 MCG PO (10:01)
--- NOTE | 2025-06-25 10:12 | CM ---
Addendum entered by Michael Snyedr 06/25/25 11:51:
PT evaluation noted - SNF level of care recommended.
A referral to [facility] made.
D/C plan: [facility]
Original Note:
CM following re: discharge planning.
Reviewed pt's chart, met with pt and pt's daughter Lianna at bedside.
Pt is an 84 year old female, admitted with OBS status and primary dx of Intermittent confusion/visual auditory hallucinations concerning for possible CVA/TIA versus dementia. OBS status reviewed with pt and her daughter, TRIANA letter signed, placed
on chart, pt has a copy.
Pt reports she lives alone in an apartment, no steps to enter, has 2 supportive daughter, son at the age of 27 and it was 21 year ago. Emotional support offered and provided. Pt stated 'this is the hardest thing i am living with'. Pt
reports she ambulates with Rollator, fell at home and has been experiencing difficulties with walking in the past week.
Pt's daughter Lianna confirmed pt's correct responds and she stated her in 2019. Pt's daughter stated she is director data architecture forb therapy department at [facility] [employer] and she is requested pt goes to [facility] for a short term
rehab.
PT and OT will evaluate the pt to determine a level of care at discharge.
PCP: Kaelyn Aguilera.
Pharmacy: [facility]
D/C plan: [facility] if recommended by PT/OT.
CM will follow with discharge plan updates as hospitalization progresses
[2025-06-25] MEDS: LIPITOR 10 MG PO (17:49)
[2025-06-25] MEDS: OSCAL CAL 500 500 MG PO (17:49)
[2025-06-25] MEDS: TOPROL XL 25 MG PO (17:49)
[2025-06-25] MEDS: STERILE WATER FOR INJECTION 10 ML IV (22:07)
[2025-06-25] MEDS: ROCEPHIN 1000 MG IV (22:07)
[2025-06-25] MEDS: APRESOLINE PO (22:11)
[2025-06-26] VITALS (7 sets, daily range): BP systolic 91–133; BP diastolic 34–86; PULSE 69
[2025-06-26 07:32] LABS: Hematocrit 25.2 % (37.0-47.0); Hemoglobin 8.1 g/dL (12.0-16.0); Mean Corp Hgb Conc. 32.1 g/dL (33.0-37.0); Mean Corpuscular Volume 104.6 fL (81.0-99.0); Nucleated Red Blood Cells % 0 %; Platelet Count 142 10^3/uL (130-400); Red Cell Dist. Width 13.4 % (11.5-14.5)
[2025-06-26 07:39] LABS: ALT (SGPT) 17 U/L (0-35); AST (SGOT) 19 U/L (14-36); Albumin 3.0 g/dl (3.5-5.0); Alkaline Phosphatase 47 U/L (38-126); Blood Urea Nitrogen 46 mg/dl (7-17); Calcium 8.3 mg/dl (8.4-10.2); Carbon Dioxide 25 mmol/L (22-30); Chloride 107 mmol/L (98-107); Estimated Creatinine Clearance 23 ml/min; Glucose 122 mg/dl (70-99); Potassium 4.7 mmol/L (3.5-5.1); Sodium 136 mmol/L (135-145); Total Protein 5.4 g/dl (6.3-8.2); eGFR 36.87
[2025-06-26] MEDS: APRESOLINE PO (07:51)
[2025-06-26] MEDS: HEPARIN 5000 UNITS SC ×2 (07:52→19:56)
[2025-06-26] MEDS: MAGNESIUM OXIDE 400 MG PO (07:52)
[2025-06-26] MEDS: PROTONIX 40 MG PO (07:52)
[2025-06-26] MEDS: THERAGRAN 1 TABLET PO (07:52)
--- NOTE | 2025-06-26 10:34 | CM ---
Addendum entered by Helen Linn 06/26/25 16:25:
Patient daughter aware of plan for transfer and requested ambulance for patient. CM will complete ambulance transfer forms. pending physician assessment
Addendum entered by Helen Linn 06/26/25 16:17:
liaison updated with auth and will accept patient in am.
Addendum entered by Helen Linn 06/26/25 16:04:
Patient auth confirmed by Orlin #[id number] approved to [facility] [place] 06/26-06/28 next review to [phone]. CM called to Liaison to confirm auth. Liaison to call back to confirm acceptance.
Addendum entered by Helen Linn 06/26/25 11:40:
CM spoke with [facility]/ [facility] [phone];pending auth # [id number] to [phone]. Await response.
Original Note:
Per physician patient is for discharge to SNF and liaison at [facility] [place] agreed patient accepted. Patient will need auth from [facility]. CM will start authorization request. CM updated patient and will continue to follow for discharge planning
needs.
Plan; SNF when auth confirmed
[2025-06-26] MEDS: SYNTHROID 25 MCG PO (10:45)
[2025-06-26] MEDS: TOPROL XL 25 MG PO (17:26)
[2025-06-26] MEDS: LIPITOR 10 MG PO (17:26)
[2025-06-26] MEDS: OSCAL CAL 500 500 MG PO (17:27)
[2025-06-26] MEDS: APRESOLINE 50 MG PO (19:56)
[2025-06-26] MEDS: ROCEPHIN 1000 MG IV (21:50)
[2025-06-26] MEDS: STERILE WATER FOR INJECTION 10 ML IV (21:50)
[2025-06-27 02:58] VITALS: BP 105/41
[2025-06-27] MEDS: SYNTHROID 25 MCG PO (05:20)
[2025-06-27 07:00] VITALS: BP 120/42
[2025-06-27] MEDS: MAGNESIUM OXIDE 400 MG PO (07:20)
[2025-06-27] MEDS: THERAGRAN 1 TABLET PO (07:20)
[2025-06-27] MEDS: PROTONIX 40 MG PO (07:20)
[2025-06-27] MEDS: HEPARIN 5000 UNITS SC (07:20)
[2025-06-27] MEDS: APRESOLINE 50 MG PO (07:21)
[2025-06-27 07:28] LABS: Hematocrit 26.1 % (37.0-47.0); Hemoglobin 7.9 g/dL (12.0-16.0); Mean Corp Hgb Conc. 30.3 g/dL (33.0-37.0); Mean Corpuscular Volume 111.5 fL (81.0-99.0); Nucleated Red Blood Cells % 0 %; Platelet Count 139 10^3/uL (130-400); Red Cell Dist. Width 13.3 % (11.5-14.5)
[2025-06-27 07:56] LABS: Albumin 3.0 g/dl (3.5-5.0); Blood Urea Nitrogen 49 mg/dl (7-17); Carbon Dioxide 25 mmol/L (22-30); Chloride 108 mmol/L (98-107); Estimated Creatinine Clearance 25 ml/min; Total Protein 5.5 g/dl (6.3-8.2); eGFR 40.30
[2025-06-27 08:17] LABS: ALT (SGPT) 16 U/L (0-35); AST (SGOT) 19 U/L (14-36); Alkaline Phosphatase 49 U/L (38-126); Calcium 8.7 mg/dl (8.4-10.2); Glucose 119 mg/dl (70-99); Potassium 4.6 mmol/L (3.5-5.1); Sodium 138 mmol/L (135-145)
--- NOTE | 2025-06-27 09:49 | W.PN.HOSP.TC ---
Today's Communication/Plan
-
d/c planning for snf rehab
Assessment / Plan
Assessment / Plan
1. Acute toxic metabolic encephalopathy - resolved
-No clear reason for encephalopathy found on preliminary workup, question of possible undiagnosed mild cognitive impairment/mild dementia
-CT head showed some atrophy, no other acute findings
-MRI brain neg for any acute abnormalities
-Urinalysis not suggestive of significant UTI, treating empirically 3 days of antibiotic for bacteriuria
-TSH 6.38 and FT4 1.48, no other signs suggestive of hypothyroidism, will start on Levothyroxine 25mcg/d, recheck tsh/ft4 with PCP in 4-6 weeks
-Patient had minimal temperature of 100 Fahrenheit, COVID neg.
-B12/folate within normal limit
-Limit sedating medication
- Continue supportive care
2. Abnormal urinalysis
- Significant bacteriuria, not much pyuria
- Patient denies of having any dysuria/urinary urgency/incontinence
- Finishing 3 days of Rocephin therapy empirically tomorrow
3. KATIE versus CKD stage IIIb - Improving
- Last known baseline creatinine of 1.1 in October 23
- On losartan/Lasix at home, will resume at discharge
- Bladder scan and straight cath protocol ordered
4. Right lower extremity swelling
Recent mechanical fall
-Ultrasound negative for DVT
- Compression stockings
5. Chronic macrocytic anemia
- Hemoglobin has trended down to 7.8, no signs of ongoing blood loss
- This is likely dilutional component with patient getting 1 L of NS yesterday
- Continue monitoring for now
6. Essential hypertension
-Maintained on metoprolol and hydralazine
-Hold UZAIR in light of unclear renal function status
7. HLD
-Continue simvastatin 10 mg every afternoon
8. GERD
-Continue omeprazole 20 mg daily, calcium carbonate
DVT prophylaxis - Subcu heparin
DNR per patient with daughter Lianna present at bedside by admitting [employer]
Daughter updated about the new findings. Planning to be discharged to SNF rehab
Anticipated Discharge: Within 24 hours
Subjective/Interval History
-
Date of Service: June 26, 2025
Clinically better
confusion improved
Objective Data
-
Labs:
Laboratory Results
06/27/25
06:45
WBC 4.8
Hgb 7.9 L
Hct 26.1 L
Plt Count 139
Sodium 138
Potassium 4.6
Chloride 108 H
Carbon Dioxide 25
BUN 49 H
Creatinine 1.3 H
Glucose 119 H
Calcium 8.7
Total Bilirubin 0.3
AST 19
ALT 16
Alkaline Phosphatase 49
Vital Signs:
Vital Signs
Temp Pulse Resp BP Pulse Ox
98.1 F 66 16 120/42 98
06/27/25 07:00 06/27/25 07:21 06/27/25 07:00 06/27/25 07:21 06/27/25 07:00
I&O
06/26/25 06/27/25 06/28/25
06:59 06:59 06:59
Intake Total 240 / 240 480 / 480
Balance 240 / 240 480 / 480
Review of Systems
-
Respiratory: Reports No Symptoms
Cardiac: Reports No Symptoms
Abdomen/GI: Reports No Symptoms
Physical Exam
-
General: No Apparent Distress
HEENT: Negative Oxygen
Respiratory: Clear to Auscultation
Cardiac: Regular Rhythm and S1/S2; Negative Murmur
GI: Soft, Nontender and Nondistended
Neuro: Awake and Alert; Negative Oriented
--- NOTE | 2025-06-27 09:59 | CM ---
Patient for discharge to SNF today. Patient is OBS/TRIANA and daughter Lianna is aware of transfer via ambulance. Pending time of ambulance. Discharge order is in and authorization information communicated to SNF liaison 06/26. Please call report to
[phone]. CM will continue to follow for discharge planning needs.
Plan; transfer to SNF via ambulance
[2025-06-27] MEDS: FLUZONE HIGH-DOSE 2025-26 0.5 ML IM (10:06)
[2025-06-27] MEDS: VITAMIN B-12 1000 MCG PO (10:06)
--- NOTE | 2025-06-27 11:09 | W.DCSUMMARY ---
Discharge Summary
Discharge Data
Date of Admission: 06/24/25
Date of Discharge: 06/27/25
-
Pending Results: No
Hospital Course
Discharging Physician : Dr Maynor Valdez
Disposition : To SNF rehab
Primary care physician : Dr Kaelyn Aguilera
Principal Discharge diagnosis :
Acute toxic metabolic encephalopathy
Elevated TSH level
Bacteriuria
Acute kidney injury on chronic kidney disease stage IIIb
Right lower extremity swelling
Recent mechanical fall
Chronic Discharge diagnosis :
Essential hypertension
Chronic anemia
Hyperlipidemia
Gastroesophageal flux disease
Physical examination:
HEENT: moist mucus membrane
Chest: Clear to auscultation
Heart: N s1/s2, RRR, no rub
Abd: N BS, soft, nontender, nondistended
Neuro: No motor or sensory deficits
Ext: No edema
Hospital Course :
Patient is 84-year-old female with above-mentioned past medical history was brought to ER by family after patient was noted to having episodes of confusion. Patient apparently was not having any other symptoms preceding ER visit. In ER patient
underwent rapid evaluation with patient checked for UTI/infection/CT head. All were negative except urinalysis showing some bacteriuria although patient was not voicing any clear symptoms of UTI patient was empirically given antibiotics. Patient
was admitted for further monitoring. Follow-up MRI brain did not show any new abnormality. Thyroid function were checked and TSH was marginally elevated, patient was started on levothyroxine 25 mcg daily dose. Patient will require follow-up with
primary care physician for follow-up thyroid function check. Patient also had acute kidney injury and Lasix was held, after improvement of renal function patient was resumed back on home Lasix/UZAIR medication at discharge. Patient had a right lower
extremity swelling post mechanical fall, Doppler venous skin was negative. No signs of hematoma on exam. Local wound care was recommended for superficial abrasions. PT evaluated patient and was approved for SNF rehab, patient was discharged to
[facility] for rehab.
Important imaging findings :
None
Procedure findings :
None
Discharge Plan
-
Patient Disposition: Assisted/SNF
Discharge Diagnosis/Procedures: Episode of confusion, Abnormal UA, Abnormal thyroid function test
Condition: Fair
Diet: Regular
Activity: As tolerated
Driving Restrictions: As prior to admission
Bathing Restrictions: OK to Shower
Blood Work: TSH/Free T3-T4 in 4-6 weeks with PCP office
Referrals:
Kaelyn Aguilera CRNP [Family Provider, [facility]] - in one week
Prescriptions:
New
levothyroxine 25 mcg Tablet
25 mcg PO DAILY @ 0600 Qty: 30 0RF
Continued
simvastatin 10 mg Tablet
10 mg PO QPM
cyanocobalamin (vitamin B-12) 1,000 mcg Tablet
1,000 mcg PO Q48H
calcium carbonate [Calcium 600] 600 mg calcium (1,500 mg) Tablet
600 mg PO QPM
hydralazine 50 mg Tablet
50 mg PO BID
furosemide 20 mg Tablet
20 mg PO DAILY
metoprolol succinate 25 mg Tablet Extended Release 24 Hr
25 mg PO QPM
vblilzeochyk-apadkkzz-iuvijb Tablet
1 tab PO DAILY
omeprazole 20 mg Tablet,Delayed Release (Dr/Ec)
20 mg PO DAILY
magnesium oxide 400 mg magnesium Tablet
400 mg PO DAILY
olmesartan 20 mg Tablet
20 mg PO DAILY Qty: 0 0RF
Rx Instructions:
HOLD DOSE IF SBP < 110
Discharge Orders:
Discharge Patient (As Directed); Ordered 06/27/25
Ordered By: Maynor Valdez
Discharge Date and Time
Print Language: MALIAN
[2025-06-27 11:15] VITALS: BP 141/77
[2025-06-27 15:06] VITALS: BP 137/58
== END 2025-06-27 15:07 ==
LOC: 2 NORTH 21:45
PROVIDERS: Clinical Nurse Specialist Family Health; Emergency Medicine; ADMITTING PHYSICIAN Internal Medicine; ATTENDING PHYSICIAN Hospitalist; EMERGENCY PHYSICIAN Student in an Organized Health Care Education/Training Program; FAMILY PHYSICIAN Nurse Practitioner
DX: G92.8 Other toxic encephalopathy (principal); I12.9 Hypertensive chronic kidney disease with stage 1 through stage 4 chronic kidney disease, or unspecified chronic kidney disease; R53.1 Weakness; R53.83 Other fatigue; L03.115 Cellulitis of right lower limb; R41.82 Altered mental status, unspecified; R29.6 Repeated falls; R60.9 Edema, unspecified; R44.0 Auditory hallucinations; G31.9 Degenerative disease of nervous system, unspecified; R44.1 Visual hallucinations; D53.9 Nutritional anemia, unspecified; K21.9 Gastro-esophageal reflux disease without esophagitis; N17.9 Acute kidney failure, unspecified; N18.32 Chronic kidney disease, stage 3b; E78.5 Hyperlipidemia, unspecified; R94.31 Abnormal electrocardiogram [ECG] [EKG]; I65.23 Occlusion and stenosis of bilateral carotid arteries; M79.89 Other specified soft tissue disorders; R94.6 Abnormal results of thyroid function studies; Z66 Do not resuscitate; Z87.891 Personal history of nicotine dependence; Z88.8 Allergy status to other drugs, medicaments and biological substances; Z91.041 Radiographic dye allergy status; Z60.2 Problems related to living alone; Z85.820 Personal history of malignant melanoma of skin; Z90.49 Acquired absence of other specified parts of digestive tract; Z96.651 Presence of right artificial knee joint; Z98.1 Arthrodesis status; Z91.81 History of falling; Z79.899 Other long term (current) drug therapy; Z23 Encounter for immunization; Z11.52 Encounter for screening for COVID-19
CPT/HCPCS: 70450; 70551; 80053; 80061; 81003; 81015; 82607; 82746; 83036; 84439; 84443; 85025; 87086; 87811; 90662; 93005; 93880; 93971; 96360; 96361; 97116; 97162; 97166; 99285; G0008; G0378